=== PATIENT | male | born 1985 ===

== ENCOUNTER 2017-12-08 10:07 | Day surgery (SDC) | payer OTHER ==
[~2017-12-08] VITALS: Ht 170.2 cm; Wt 64.9 kg
[2017-12-08] VITALS (12 sets, daily range): BP systolic 88–115; BP diastolic 48–75
[~2017-12-08 10:07] MED LIST: Cefazolin 2GM/50ML dext iso,osmotic IVPB IV ONE; NO HOME MEDS; famotidine 20mg tablet PO ONE; ringers solution, lacted 1,000 ML IV SCH
[2017-12-08] MEDS ORDERED: ROPIVAcaine 0.5% (5mg/ml) 30ml vial ONE (10:39)
[2017-12-08] MEDS ORDERED: ceFAZolin 1000mg inj ONE (12:54)
[2017-12-08] MEDS ORDERED: povidone-iodine 10% topical ointment 28.4gm TP ONE (12:54)
[2017-12-08] MEDS ORDERED: sevoflurane 250ml liquid IH ONE (13:30)
[2017-12-08] MEDS ORDERED: fentaNYL/PF 50MCG/1 ML 2ML syringe ONE (13:38)
[2017-12-08] MEDS ORDERED: propofol inj 20 ML IV ONE (14:12)
[2017-12-08] MEDS ORDERED: ondansetron/PF 4mg/2ml inj ONE (14:12)
[2017-12-08] MEDS ORDERED: dexamethasone sod phosphate 4mg/ml inj. ONE (14:12)
[2017-12-08] MEDS ORDERED: LIDOcaine 2% (20mg/ml) 5ml vial ONE (14:13)
[2017-12-08] MEDS ORDERED: ringers solution, lacted 1,000 ML IV SCH (14:17)
[2017-12-08] MEDS ORDERED: hydrALAZINE 20mg/ml inj. IV PRN ×2 (14:20)
[2017-12-08] MEDS ORDERED: ondansetron/PF 4mg/2ml inj IV PRN (14:20)
[2017-12-08] MEDS ORDERED: meperidine/PF 25mg/ml syringe IV PRN ×2 (14:20)
[2017-12-08] MEDS ORDERED: morphine 4 MG/ML inj SYRINge IV PRN ×2 (14:20)
[2017-12-08] MEDS ORDERED: meperidine/PF 50mg/ml syringe ONE (15:28)
== END 2017-12-08 17:31 ==
LOC: PAS 10:07 → EEVIPCON 14:00 → PAS 17:31
PROVIDERS: ATTEND Orthopaedic Surgery
DX: S52.292K Other fracture of shaft of left ulna, subsequent encounter for closed fracture with nonunion (principal); M89.3 Hypertrophy of bone; G89.18 Other acute postprocedural pain; F17.210 Nicotine dependence, cigarettes, uncomplicated; Z79.899 Other long term (current) drug therapy; X58.XXXD Exposure to other specified factors, subsequent encounter; Z82.49 Family history of ischemic heart disease and other diseases of the circulatory system; Z82.3 Family history of stroke; Z82.0 Family history of epilepsy and other diseases of the nervous system
CPT/HCPCS: 25545; 64417; A4565; A6449; C1713; J0690; J1100; J2001; J2175; J2405; J2704; J2795; J3010; J7120; A7000